=== PATIENT | female | born 1985 | race Caucasian/White ===

== ENCOUNTER 2019-10-03 01:12 | Emergency (ER) | payer BC, SELFPAY ==
[2019-10-03 01:32] VITALS: BP 137/82; PULSE 105; RESP 18; TEMP 36.9; O2SAT 97; BMI 28.1
--- NOTE | 2019-10-03 01:49 | ED_ITS ---
HPI - General Adult General: Chief complaint: General Medical Stated complaint: lower body pain Time Seen by Provider: 10/03/19 01:31 History of Present Illness: HPI narrative: Patient comes in complaining about pain in the buttocks area from an abscess that is been there for the last week or 2 this got worse over the last 24 hours. This is a second time this is occurred. He has appointment Dr. Thurston today for an evaluation of the abscess patient says she just cannot wait that long. MD complaint: Abscess Onset (ago): day(s) Location: buttocks Radiation: non-radiation Severity: severe Severity scale (1-10): 8 Quality: aching Pain Consistency: constant Relieving factors: rest Exacerbating factors: movement Associated symptoms: Reports no associated symptoms; Deny chest pain, dyspnea, headache(s), nausea, rash or vomiting Review of Systems Const: Denies: fever, chills or body aches Eyes: Denies: change in vision or blurry vision ENMT: Denies: throat pain or nasal congestion Card: Denies: chest pain or shortness of breath on exertion Resp: Denies: shortness of breath, productive cough or non-productive cough GI: Denies: abdominal pain, nausea or vomiting Musc: Denies: extremity pain Skin/Breast: Reports: other (Abscess buttocks area); Denies: rash Neuro: Denies: headache Psych: Denies: anxiety or depression Favio/Lymph: Denies: easy bruising PFS ED PFSH: Social History Smoking and tobacco status: current every day smoker Female Reproductive History: Date of last menstrual period: 09/01/19 Physical Exam Const: COMMON NORMALS: no apparent distress, average body habitus and oriented x3 HENMT: COMMON NORMALS: normocephalic HEAD & SCALP: normal to inspection and normocephalic FACE & SINUS: normal facial exam Eye: COMMON NORMALS: conjunctivae normal GENERAL EYE: normal appearance of both eyes CONJUNCTIVA: Yes conjunctivae normal Neck/C-Spine: COMMON NORMALS: no JVD Chest: COMMONS NORMALS: inspection of chest normal Resp: COMMON NORMALS: normal respiratory effort and clear to auscultation bilaterally AUSCULTATION: clear to auscultation bilaterally Cardio: COMMON NORMALS: no JVD, regular rate and regular rhythm RATE: regular rate RHYTHM: regular rhythm GI: COMMON NORMALS: normal to inspection, nondistended, normoactive bowel sounds Extremity: COMMON NORMALS: normal to inspection and full ROM Neuro: COMMON NORMALS: oriented x3 Procedures Abscess I/D Site: femi-rectal Local Anesthetic: lidocaine 2% Amount of anesthesia used (mL): 2 Technique: incised with #11 blade Amount of fluid expressed (mL): 2 (Pustular) Irrigation: Yes Packing used?: iodoform Complications: pain Course Vital Signs: Vital signs: Vital Signs Temperature 98.4 F 10/03/19 01:32 Pulse Rate 88 10/03/19 02:27 Respiratory Rate 16 10/03/19 02:27 Blood Pressure 111/88 10/03/19 02:27 Pulse Oximetry 96 10/03/19 02:27 Discharge Plan Discharge Patient Disposition: Home, Self-Care Clinical Impression: Abscess Condition: Stable Prescriptions: New Bactrim DS 800-160 mg tablet 1 tab PO BID 7 Days Qty: 14 RF: 0 hydrocodone-acetaminophen 5-325 mg tablet 1 tab PO Q8H PRN (Reason: pain) Qty: 7 RF: 0 Discharge Orders: Discharge Order (Routine); Ordered 10/03/19 Ordered By: Perez Chapman Referrals: Phoenix Dunaway MD [Primary Care Provider] - Discharge Diet: Usual diet Discharge Activity: Increase activity as tolerated Patient Instructions: Abscess (ED) Activity Restrictions/Additional Instructions: Follow-up with medical provider as directed. Take medications as prescribed. Return to the ER or your medical provider if condition worsens. Please read and understand discharge instructions. If any questions ask please. Keep appointment with surgeon today take medicine as directed Discharge Date/Time: 10/03/19 02:28 Coding Level of Care Code ED Facility Administrator for [facility] Fwd Exam Comprehensive
[2019-10-03] MEDS: HYDROcodone-acetaminophen 10-325 mg Tablet 1 TAB PO (02:20)
[2019-10-03] MEDS: sulfamethoxazole-trimeth DS 160-800 mg Tablet 1 TAB PO (02:20)
[2019-10-03 02:27] VITALS: BP 111/88; PULSE 88; RESP 16; O2SAT 96
[2019-10-03] MEDS: lidocaine 2% INJ 20 mL INJECTION (02:29)
== END 2019-10-03 02:28 | disposition home or self-care (01) ==
PROVIDERS: Emergency Provider Nurse Practitioner Family; Family Provider Family Medicine; PCP Family Medicine
DX: K61.1 Rectal abscess (principal); F17.210 Nicotine dependence, cigarettes, uncomplicated
CPT/HCPCS: 12345; 46040; 87070; 99281; 99282; 99283; J2001

== ENCOUNTER 2019-10-10 07:34 | Day surgery (SDC) | payer BC, SELFPAY ==
[2019-10-09 08:52] VITALS: BMI 28.1
[2019-10-10] VITALS (8 sets, daily range): BP systolic 95–115; BP diastolic 57–78; PULSE 67–92; RESP 16–18; TEMP 36.4–36.6; O2SAT 96–99; BMI 28.1
--- NOTE | 2019-10-10 08:18 | W.PM.OPSUD ---
Surgery/Procedure H&P Update DATE OF PROCEDURE: October 10, 2019 DATE H&P PERFORMED: 10/03/19 H&P UPDATE INFORMATION: I have reviewed H&P completed within last 30 days and No changes to prior documentation PREOP DIAGNOSIS: Perianal abscess PRIMARY INDICATION FOR PROCEDURE: The same PLANNED PROCEDURE: Operation Date: 10/10/19 10:25 Proposed Procedures p Examination under anesthesia with possible incision and drainage of perianal abscess and possible fistulotomy 33479 K61.0(Not Applicable) - Cornell Puga MD s Perirectal Abscess(Not Applicable) - oCrnell Puga MD
[2019-10-10] MEDS: sodium chloride 0.9% 1,000 ML 30 ML IV (08:28)
[2019-10-10 08:40] LABS: OR HCG Qualitative Urine Negative (Negative)
--- NOTE | 2019-10-10 08:57 | ANES.PREANE2 ---
Pre-Anesthetic Assessment Pre-Anesthetic Assessment: Height/Weight: Height 1.73 m Weight 83.915 kg Pulse Resp BP Pulse Ox 72 18 111/60 96 10/10/19 08:16 10/10/19 08:16 10/10/19 08:16 10/10/19 08:16 Preop Diagnosis: Perianal abscess Proposed Procedure: Operation Date: 10/10/19 10:25 Proposed Procedures p Examination under anesthesia with possible incision and drainage of perianal abscess and possible fistulotomy 97690 K61.0(Not Applicable) - Cornell Puga MD s Perirectal Abscess(Not Applicable) - Cornell Puga MD Familial anesthetic complications: NO Was Beta Mt taken within 24 hours: N/A Last intake: Intake Last Liquid Date 10/09/19 Last Liquid Time 18:00 Last Solid Date 10/07/19 Last Solid Time 14:00 Social: Social History: Tobacco Exam: Pre-Anes Outpt Exam: alert, oriented x 3, clear to auscultation bilaterally and regular rate & rhythm Airway: Submandibular: WNL Cervical ROM: WNL MP: 2 History/ROS: No significant history except as noted Anesthetic Plan: ASA status: 2 Anesthesia: Anesthesia Evaluation and General Risk of > 500 ml blood loss (7ml/kg in children): No Other Pertinent Information: Had to have narcan after gallbladder surgery Meds/Allergies Current Medications: Current Medications Generic Name Dose Route Start Last Admin Trade Name Freq PRN Reason Stop Dose Admin Sodium Chloride 1,000 mls @ 30 ml s/hr 10/10/19 07:45 10/10/19 08:32 Sodium Chloride 0.9% IV 10/11/19 07:44 30 mls/hr .Q24H RUBENS Infusion PFSH Anesthesia PFSH: Social History Smoking and tobacco status: current every day smoker History of recent travel: No Female Reproductive History: Date of last menstrual period: 09/01/19 Data Anesthesia Other Labs: Laboratory Results - last 48 hr 10/10/19 08:02 Urine HCG, Qual Negative Cardiac Studies: No Data to Display
[2019-10-10] MEDS: ciprofloxacin 400 MG/200 ML PREMIX 200 MG IV (10:31)
[2019-10-10] MEDS: metroNIDAZOLE IV 500 MG/100 ML PREMIX 100 MG IV (10:51)
[2019-10-10] MEDS: lidocaine 2% INJ 20 mL INJECTION (11:01)
--- NOTE | 2019-10-10 11:24 | PM.OP ---
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 without evidence of fistula formation) Procedure Done: Examination under anesthesia Incision and drainage of posterior perianal abscess with the donato and debridement of abscess cavity Implants: Packing with quarter inch Nu Gauze Specimens removed/disposition: Posterior perianal abscess roof wall Surgeon: Cornell Puga [employer] Superintendent: driver license technician Doyle Circulating nurse Flora Anesthesia: General (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 Patient was referred to my practice for further evaluation and potential management After thorough history physical examination and reviewing the chart and further discussion with the patient I did correctional counselor/case manager her for examination under anesthesia with possible incision and drainage of perianal abscess and possible fistulotomy and patient agreed to proceed understanding the indications, risks, benefits and alternatives. An informed consent per chart Procedure: Patient was identified in the holding area and was taken back to the operating room, which was first placed in supine position got intubated by anesthesia, prophylactic IV antibiotics were given per protocol,Time-out was done verifying the patient's name/date of /planned procedure and destination after the procedure, all were in agreement. Patient was placed in a lithotomy position were all pressure points were padded Prep and drape was done thereafter under the usual sterile technique,started by pudendal nerve block bilaterally , injecting lidocaine 2% 10 mL each side,guided by the examining finger towards the ischial spine bilaterally, followed by that digital rectal examination showed no masses were appreciated or bleeding. Patient was found to have a 6:00 o'clock a sinus representing incision and drainage of previous perianal abscess, there was evidence of induration no evidence of perianal fistulae, or signs of perianal Crohn's disease. A lubricated Anoscope was then introduced I placed a wet 4 x 4 inside the anal canal to prevent stools from encroaching on the wound site, that was taken out at the end of the procedure. Gentle probing of the sinus showed no communication with the anal canal, I decided at this point to extend the sinus opening of the previous I&D and to curette the track that was directing cephalad about 1 inch towards the anal canal at the subcutaneous layer, de-donato of the sinus was done and the skin was sent for permanent pathology, irrigation followed by hemostasis followed by packing with quarter inch Nu Gauze was done followed by ABD and surgical pants. Count was completed at the end of the procedure, patient was then extubated and was taken to the recovery room in stable condition I was present for the whole entire procedure
--- NOTE | 2019-10-10 11:52 | SUR.PHASEI ---
1144 PT AWAKE ON ARRIVAL, TALKATIVE, ON RA DENIES PAIN AND NAUSEA, PT ASKING QUESTIONS ABOUT SURGERY, PT TO TALK TO SHORTLY, VSS DRESSING D/I PT TO OPS PER CART PT REQUESTS SPRITE TO SIP ON.
--- NOTE | 2019-10-10 12:46 | SUR.PHASEII ---
Dressing change: Patient instructed on how to care for perianal abscess wound at home. Patient instructed to do sitz baths with room temperature water 3-4 times daily. Wound to be packed with 1/4 inch nu-gauze daily and covered with dry dressing. Detailed instruction written and included in discharge instructions. Patient verbalized understanding.
== END 2019-10-10 12:51 | disposition home or self-care (01) ==
PROVIDERS: Anesthesiology Pain Medicine; Family Provider Family Medicine; Visit Provider Surgery
PROC: (CPT 46045; principal; 2019-10-10 10:10)
PROC: (CPT 46040; 2019-10-10 10:10)
DX: K61.0 Anal abscess (principal); F17.210 Nicotine dependence, cigarettes, uncomplicated
CPT/HCPCS: 46045; 12345; 81025; 84703; 88304; 96365; J0131; J0744; J2001; J2250; J2704; J3010; J3490; J7030; S0030